=== PATIENT | female | born 1950 | race Caucasian/White ===

== ENCOUNTER 2025-09-26 19:31 | Emergency (ER) | payer MEDICARE, OTHER | END 2025-09-26 21:12 | disposition home or self-care (01) | LOC: MADERS 19:31 | DX: S92.352A Displaced fracture of fifth metatarsal bone, left foot, initial encounter for closed fracture (principal); I10 Essential (primary) hypertension; X50.0XXA Overexertion from strenuous movement or load, initial encounter; Z79.82 Long term (current) use of aspirin; Z79.899 Other long term (current) drug therapy | CPT/HCPCS: 99283 ==